=== PATIENT | female | born 1960 | race Caucasian/White ===

== ENCOUNTER 2019-08-24 21:35 | Inpatient (IN) | payer BC ==
[2019-08-24] MEDS: Diltiazem IV BAG* D5W Premix 125 MG/125 ML BAG IV ONE ×2 (21:49→22:38)
[2019-08-24] MEDS ORDERED: Metoprolol Tartrate TAB* 50 mg PO ONE (21:50)
--- NOTE | 2019-08-24 21:53 | ED ---
HPI Cardiac - HPI Summary HPI Summary: Patient is a 59 y/o F presenting to [facility] via EMS for chief complaint of rapid afib. The patient has been experiencing intermittent episodes of chest discomfort along with fatigue, SOB, and palpitations. In June 2019, she started seeing Dr. Anguiano, cardiology. Patient states that she is scheduled to have a cardiac stress test in two days time. In anticipation of this, she was advised to stop taking her Metoprolol, 50 mg, yesterday evening. Tonight, she developed another episode of Sx. She went to [facility] and was found to be in rapid afib. Patient received a Cardizem drip of 15mg/hr and was transferred to [facility] for further workup. The patient states that she is still currently experiencing a chest fluttering sensation but denies SOB and CP. She notes that she will experience intermittent radiation of this sensation into her neck and arms. Patient is on Lisinopril 40 mg, Sertaline 50 mg, Omperazole 20 mg, Ibuprofen 800 mg BID, Gabapentin 300 mg, Levothyroxine, Metoprolol 50 mg. Home medications and allergies are reviewed. Home Medications Medication Instructions Recorded Confirmed Type Gabapentin CAP(*) [Neurontin 300 300 mg PO BID 08/24/19 08/24/19 History CAP(*)] Ibuprofen TAB* [Motrin TAB* 800 MG] 800 mg PO TID PRN 08/24/19 08/24/19 History Ketoconazole 2 % CREAM (NF) 1 applic TOPICAL BID PRN 08/24/19 08/24/19 History [Nizoral 2% CREAM (NF)] Levothyroxine TAB* [Synthroid TAB*] 100 mcg PO SUSA 08/24/19 08/24/19 History Levothyroxine TAB* [Synthroid TAB*] 112 mcg PO MOTUWETHFR 08/24/19 08/24/19 History Metoprolol Succinate XL TAB* 50 mg PO DAILY 08/24/19 08/24/19 History [Toprol XL TAB*] Omeprazole CAP (NF) [Prilosec CAP* 20 mg PO DAILY 08/24/19 08/24/19 History 20 MG] Sertraline* [Zoloft*] 50 mg PO DAILY 08/24/19 08/24/19 History lisinopriL [Lisinopril] 40 mg PO DAILY 08/24/19 08/24/19 History - History of Current Complaint Chief Complaint: EDDysrhythmPalp Stated Complaint: AFIB PER EMS Time Seen by Provider: 08/24/19 21:39 Hx Obtained From: Patient Onset/Duration: Started Hours Ago, Still Present Timing: Lasting Hours Current Severity: None Pain Intensity: 0 Pain Scale Used: 0-10 Numeric Character: Fluttering Associated Signs and Symptoms: Positive: Palpitations - fluttering. Negative: Chest Pain - none at present, Shortness of Breath - none at present - Allergy/Home Medications Allergies/Adverse Reactions: Allergies Allergy/AdvReac Type Severity Reaction Status Date / Time cephalexin [From Keflex] Allergy Hallucinati Verified 08/24/19 21:44 ons Penicillins Allergy Hallucinati Verified 08/24/19 21:44 ons ciprofloxacin [From Cipro] AdvReac Nausea And Verified 08/24/19 21:44 Vomiting Home Medications: Home Medications Gabapentin CAP(*) [Neurontin 300 CAP(*)] 300 mg PO BID 08/24/19 [History Confirmed 08/24/19] Ibuprofen TAB* [Motrin TAB* 800 MG] 800 mg PO TID PRN 08/24/19 [History Confirmed 08/24/19] Ketoconazole 2 % CREAM (NF) [Nizoral 2% CREAM (NF)] 1 applic TOPICAL BID PRN [History Confirmed 08/24/19] Levothyroxine TAB* [Synthroid TAB*] 100 mcg PO SUSA 08/24/19 [History Confirmed 08/24/19] Levothyroxine TAB* [Synthroid TAB*] 112 mcg PO MOTUWETHFR 08/24/19 [History Confirmed 08/24/19] Metoprolol Succinate XL TAB* [Toprol XL TAB*] 50 mg PO DAILY 08/24/19 [History Confirmed 08/24/19] Omeprazole CAP (NF) [Prilosec CAP* 20 MG] 20 mg PO DAILY 08/24/19 [History Confirmed 08/24/19] Sertraline* [Zoloft*] 50 mg PO DAILY 08/24/19 [History Confirmed 08/24/19] lisinopriL [Lisinopril] 40 mg PO DAILY 08/24/19 [History Confirmed 08/24/19] PMH/Surg Hx/FS Hx/Imm Hx Endocrine/Hematology History: Reports: Hx Thyroid Disease Cardiovascular History: Reports: Hx Hypertension GI History: Reports: Hx Gastroesophageal Reflux Disease Infectious Disease History: No Infectious Disease History: Denies: Traveled Outside the [place] in Last 30 Days - Family History Known Family History: Positive: Diabetes - Social History Alcohol Use: None Substance Use Type: Reports: None Smoking Status (MU): Never Smoked Tobacco Review of Systems Positive: Palpitations. Negative: Chest Pain Negative: Shortness Of Breath All Other Systems Reviewed And Are Negative: Yes Physical Exam - Summary Physical Exam Summary: Appearance: Well-appearing, Well-nourished, lying in bed comfortably Skin: Warm, dry, no obvious rash Eyes: sclera anicteric, no conjunctival pallor HENT: mucous membranes moist, pharynx appears normal Neck: Supple, nontender Respiratory: Clear to auscultation, no signs of respiratory distress Cardiovascular: Irregularly irregular. Normal S1, S2. No murmurs. Normal distal pulses in tibial and radial bilaterally. Abdomen: Soft, nontender, normal active bowel sounds present Musculoskeletal: Normal, Strength/ROM Intact Neurological: A&Ox3, awake and alert, mentation is normal, speech is fluent and appropriate Psychiatric: affect is normal, does not appear anxious or depressed Triage Information Reviewed: Yes Vital Signs On Initial Exam: Initial Vitals Temp Pulse Resp BP Pulse Ox 97.9 F 132 18 168/121 97 08/24/19 21:42 08/24/19 21:42 08/24/19 21:42 08/24/19 21:42 08/24/19 21:42 Vital Signs Reviewed: Yes Procedures - Sedation Patient Received Moderate/Deep Sedation with Procedure: No Diagnostics - Vital Signs Vital Signs Temp Pulse Resp BP Pulse Ox 08/24/19 21:42 97.9 F 132 18 168/121 97 - Laboratory Lab Statement: Any lab studies that have been ordered have been reviewed, and results considered in the medical decision making process. Disposition - Course Course Of Treatment: Patient is a 59 y/o F presenting to [facility] via EMS for chief complaint of rapid afib. The patient has been experiencing intermittent episodes of chest discomfort along with fatigue, SOB, and palpitations. In June 2019, she started seeing Dr. Anguiano, cardiology. Patient states that she is scheduled to have a cardiac stress test in two days time. In anticipation of this, she was advised to stop taking her Metoprolol, 50 mg, yesterday evening. Tonight, she developed another episode of Sx. She went to [facility] and was found to be in rapid afib. Patient received a Cardizem drip of 15mg/hr and was transferred to [facility] for further workup. The patient states that she is still currently experiencing a chest fluttering sensation but denies SOB and CP. She notes that she will experience intermittent radiation of this sensation into her neck and arms. On physical exam, patient is noted to have an irregularly irregular heart rhythm. During ED course, patient received Lopressor 100 mg PO and Cardizem, 125 mg in 125 mls @ 10 mls/hr IV. Patient's case was discussed with Dr. Palmer, Dr. Palmer accepts for admission. - Diagnoses Provider Diagnoses: Atrial fibrillation with RVR - Physician Notifications Discussed Care Of Patient With: Dinorah Palmer Time Discussed With Above Provider: 22:36 Instructed by Provider To: Other - Patient's case was discussed with Dr. Palmer, Dr. Palmer accepts for admission. Discharge ED - Sign-Out/Discharge Documenting (check all that apply): Patient Departure - admit - Discharge Plan Condition: Stable Disposition: ADMITTED TO [facility] - Billing Disposition and Condition Condition: STABLE Disposition: Admitted to [facility] - Attestation Statements Document Initiated by Valerie: Yes Documenting Scribe: CURTIS KITCHEN Provider For Whom Valerie is Documenting (Include Credential): MD Jadiel JASSOibrola Attestation: CURTIS Salvador, scribed for CHALINO CASPER MD on 08/25/19 at 0607. Scribe Documentation Reviewed: Yes Provider Attestation: The documentation as recorded by the CURTIS cooper accurately reflects the service I personally performed and the decisions made by me, CHALINO CASPER MD Status of Scribe Document: Viewed
--- OUTSIDE RECORDS SUMMARY | 2019-08-24 22:14 | XMS REPORT | Continuity of Care Document ---
:1960 External Reference #:[id number] Author Name Vasquez Anguiano M.D. 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 Onset: 03/20/2018 Carpal tunnel syndrome of left wrist Timothy Waters M.D. Onset: 03/20/2018 Lesion of ulnar nerve Timothy Waters M.D. Onset: 03/20/2018 Sprain of medial collateral ligament of Timothy Waters M.D. Onset: 2018 knee Current tear of medial cartilage AND/OR Timothy Waters M.D. Onset: 2018 meniscus of knee Sprain of anterior cruciate ligament of Timothy Waters M.D. Onset: 2018 left knee, subsequent encounter Peripheral tear of medial meniscus, Timothy Waters M.D. Onset: 11/26/2018 current injury, left knee, subsequent encounter Social History Type Date Description Comments Sex Unknown Tobacco Use Start: Unknown Never Smoked Cigarettes Smoking Status Reviewed: 07/22/19 Never Smoked Cigarettes ETOH Use consumes 1-2 glasses of wine per day Recreational Drug Use Denies Drug Use Tobacco Use Start: Unknown Patient has never smoked Exercise Type/Frequency Does not exercise Allergies, Adverse Reactions, Alerts Active Allergies Reaction Severity Comments Date Penicillin 01/25/2013 Keflex 01/25/2013 Antihistamine 01/25/2013 Sudafed 01/25/2013 Ciprofloxacin 11/20/2018 Medications Active Medications SIG Qnty Indications Ordering Date Provider Clobetasol Propionate apply twice daily 30gm Maranda Milan, 04/14/2019 0.05% N.P. Ointment Ibuprofen three times 60tabs Unknown 800mg Tablets daily. prn Lisinopril 1 po qd 30tabs Unknown 20mg Tablets TENS Unit prn Unknown Zyrtec Allergy 1 po qd 30tabs Unknown 10mg Tablets Zoloft 1 daily Unknown 50mg Tablets Omeprazole 1 in a.m. Unknown 20mg Tablets DR Hopkins HFA 2 puffs by mouth Unknown 108(90Base) every 4 hours as mcg/Act Aerosol needed Levothyroxine Sodium 1 by mouth every Unknown 112mcg day, Pt Tablets alternates with 100mcg tablets on the weekend Gabapentin 1 bid Unknown 300mg Capsules Cyclobenzaprine HCL 1 tablet by mouth Unknown 10mg q8 hours as Tablets needed muscle spasms Metoprolol Succinate ER 1 by mouth every Unknown day 50mg Tablets ER 24HR Vagifem insert 1 tablet Unknown 10mcg Tablets vaginally twice a week Aspirin Adult take one tab Unknown 325mg Tablets twice a day for 2 weeks Vitamin B12 1 by mouth every Unknown 1000mcg Tablets day ER Immunizations Description No Information Available Vital Signs Date Vital Result Comment 07/22/2019 10:12am Height 63.5 inches 5'3.50" Weight 251.25 lb Heart Rate 67 /min BP Systolic Sitting 140 mmHg Left arm - Large Cuff BP Diastolic Sitting 86 mmHg Left arm - Large Cuff Respiratory Rate 18 /min Body Temperature 97.8 F O2 % BldC Oximetry 98 % BMI (Body Mass Index) 43.8 kg/m2 07/20/2019 4:14pm Height 63.5 inches 5'3.50" Weight 249.00 lb Heart Rate 81 /min BP Systolic Sitting 138 mmHg BP Diastolic Sitting 90 mmHg Body Temperature 97.3 F BMI (Body Mass Index) 43.4 kg/m2 Results Description No Information Available Procedures Date Code Description Status 07/22/2019 53168 EKG Tracing & Interpretation Completed 07/21/2019 75603 Tangential Biopsy Of Skin, Single Lesion Completed 04/30/2019 48146 Arthroscopy,Knee,Meniscectomy Medial Or Lateral Completed Medical Devices Description No Information Available Encounters Type Date Location Provider Dx Diagnosis Office Visit 05/19/2019 [facility] Maranda Milan N.P. 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 07/22/2019 R00.0 Tachycardia Vasquez Anguiano M.D. 07/22/2019 R00.2 Palpitations Vasquez Anguiano M.D. 07/21/2019 D23.9 Other benign neoplasm of skin, unspecified Tierney Shirley MD 07/21/2019 B37.2 Candidiasis of skin and nail Tierney Shirley MD 07/21/2019 L81.4 Other melanin hyperpigmentation Tierney Shirley MD 07/21/2019 L85.8 Other specified epidermal thickening Tierney Shirley MD 07/21/2019 L73.8 Other specified follicular disorders Tierney Shirley MD 07/21/2019 D48.5 Neoplasm of uncertain behavior of skin Tierney Shirley MD 07/20/2019 S83.222D Peripheral tear of medial meniscus, Timothy Waters M.D. current injury, left kne 07/20/2019 M70.52 Other bursitis of knee, left knee Timothy Waters M.D. 06/29/2019 S83.222D Peripheral tear of medial meniscus, Timothy Waters M.D. current injury, left kne 06/15/2019 S83.222D Peripheral tear of medial meniscus, Timothy Waters M.D. current injury, left kne 06/15/2019 M70.52 Other bursitis of knee, left knee Timothy Waters M.D. 06/01/2019 S83.222D Peripheral tear of medial meniscus, Timothy Waters M.D. current injury, left kne 05/19/2019 L90.0 Lichen sclerosus et atrophicus Maranda Milan, N.P. 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 05/11/2019 S83.222D Peripheral tear of medial meniscus, Timothy Waters M.D. current injury, left kne 04/30/2019 S83.222D Peripheral tear of medial meniscus, Timothy Waters M.D. current injury, left kne 04/14/2019 L90.0 Lichen sclerosus et atrophicus Maranda Milan, N.P. 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 04/08/2019 S83.222D Peripheral tear of medial meniscus, Timothy Waters M.D. current injury, left kne Plan of Treatment Future Appointment(s):09/09/2019 11:45 am - Vasquez Anguiano M.D. at [facility]08/26/2019 8:30 am - Traveling ECHO 1 at [facility]2019 9:00 am - Vasquez Anguiano M.D. at [facility]08/02/2019 8:15 am - Traveling ECHO 1 at [facility]07/22/2019 - Vasquez Anguiano M.D.R07.89 Chest painNew Orders:Stress Test, Exercise Echocardiogram, Ordered: 07/22/19Echocardiogram, Ordered: 07/22/19Follow up:1 [id number] VybewzhvxzbO42.2 Palpitations Functional Status Description No Information Available Mental Status Description No Information Available Referrals Refer to Dr Reason for Referral Status Appt Date Tierney Shirley MD Lichen sclerosus, black papule on right Scheduled [address], [place] [address] [phone]
--- OUTSIDE RECORDS SUMMARY | 2019-08-24 22:14 | XMS REPORT | Continuity of Care Document ---
:1960 External Reference #:[id number] Author Name Timothy Waters M.D. 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 Ointment Ibuprofen three times 60tabs Unknown 800mg Tablets daily. prn Lisinopril 1 po qd 30tabs Unknown 20mg Tablets TENS Unit prn Unknown Zyrtec Allergy 1 po qd 30tabs Unknown 10mg Tablets Zoloft 1 daily Unknown 50mg Tablets Omeprazole 1 in a.m. Unknown 20mg Tablets DR Hopkins HFIvonne 2 puffs by mouth Unknown 108(90Base) every 4 hours as mcg/Act Aerosol needed Levothyroxine Sodium 1 by mouth every Unknown 112mcg day Tablets Gabapentin 1 bid Unknown 300mg Capsules Cyclobenzaprine [...] Available Vital Signs Date Vital Result Comment 07/20/2019 4:14pm Height 63.5 inches 5'3.50" Weight 249.00 lb Heart Rate 81 /min BP Systolic Sitting 138 mmHg BP Diastolic Sitting 90 mmHg Body Temperature 97.3 F BMI (Body Mass Index) 43.4 kg/m2 06/29/2019 3:33pm Height 63.5 inches 5'3.50" Weight 248.00 lb Heart Rate 68 /min BP Systolic Sitting 146 mmHg BP Diastolic Sitting 100 mmHg Body Temperature 97.0 F BMI (Body Mass Index) 43.2 kg/m2 Results Description No Information Available Procedures Date Code Description Status 04/30/2019 94945 Arthroscopy,Knee,Meniscectomy Medial Or Lateral Completed Medical Devices Description No Information Available Encounters Type Date Location Provider Dx Diagnosis Office Visit 05/19/2019 [facility] Maranda Milan N.P. 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 injury, left kne 07/20/2019 M70.52 Other bursitis of knee, left knee Timothy Waters M.D. 06/29/2019 S83.222D Peripheral tear of medial meniscus, current Timothy Waters M.D. injury, left kne 06/15/2019 S83.222D Peripheral tear of medial meniscus, current Timothy Waters M.D. injury, left kne 06/15/2019 M70.52 Other bursitis of knee, left knee Timothy Waters M.D. 06/01/2019 S83.222D Peripheral tear of medial meniscus, current Timothy Waters M.D. injury, left kne 05/19/2019 L90.0 Lichen sclerosus et atrophicus Maranda Milan N.P. 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 05/11/2019 S83.222D Peripheral tear of medial meniscus, current Timothy Waters M.D. injury, left kne 04/30/2019 S83.222D Peripheral tear of medial meniscus, current Timothy Waters M.D. injury, left kne 04/14/2019 L90.0 Lichen sclerosus et atrophicus Maranda Milan N.P. 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 04/08/2019 S83.222D Peripheral tear of medial meniscus, current Timothy Evelin, M.D. injury, left kne Plan of Treatment Future Appointment(s):07/22/2019 10:00 am - Vasquez Anguiano M.D. at [facility]07/21/2019 3:30 pm - Tierney Shirley MD at [facility] Adubexxyxkn38/11/2020 - Timothy Waters M.D.S83.222D Peripheral tear of medial meniscus, current injury, left kneM70.52 Other bursitis of knee, left kneeFollow up:Call if needed Functional Status Description No Information Available Mental Status Description No Information Available Referrals Refer to Dr Reason for Referral Status Appt Date Tierney Shirley MD Lichen sclerosus, black papule on right Scheduled [address], [place] [address] [phone]
--- OUTSIDE RECORDS SUMMARY | 2019-08-24 22:14 | XMS REPORT | Continuity of Care Document ---
:1960 External Reference #:[id number] Author Name Timothy Waters M.D. 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 [phone] Medicine Problems Active Problems Provider Date Lumbosacral [...] Unknown Never Smoked Cigarettes Smoking Status Reviewed: 06/29/19 Never Smoked Cigarettes ETOH Use consumes 1-2 [...] Available Vital Signs Date Vital Result Comment 06/29/2019 3:33pm Height 63.5 inches 5'3.50" Weight 248.00 lb Heart Rate 68 /min BP Systolic Sitting 146 mmHg BP Diastolic Sitting 100 mmHg Body Temperature 97.0 F BMI (Body Mass Index) 43.2 kg/m2 06/15/2019 10:38am Height 63.5 inches 5'3.50" Weight 247.00 lb Heart Rate 65 /min BP Systolic Sitting 160 mmHg BP Diastolic Sitting 92 mmHg Body Temperature 96.9 F BMI (Body Mass Index) 43.1 kg/m2 Results Description No Information Available Procedures Date Code Description Status 04/30/2019 04239 Arthroscopy,Knee,Meniscectomy Medial Or Lateral Completed Medical Devices Description No Information Available Encounters Type Date Location Provider Dx Diagnosis Office Visit 05/19/2019 [facility] Maranda Milan N.P. 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 injury, left kne Plan of Treatment Future Appointment(s):07/20/2019 4:00 pm - Timothy Waters M.D. at [place] [facility] at [facility]23/13/2020 10:00 am - Vasquez Anguiano M.D. at [place] F[facility]xufllnxs19/12/2020 3:30 pm - Tierney Shirley MD at [facility] Eochjdziaqf24/21/2020 - Timothy Waters M.D.S83.222D Peripheral tear of medial meniscus, current injury, left kneFollow up:3 weeks Functional Status Description No Information Available Mental Status Description No Information Available Referrals Refer to Dr Reason for Referral Status Appt Date Tierney Shirley MD Lichen sclerosus, black papule on right Scheduled [address], [place] [address] [phone]
--- OUTSIDE RECORDS SUMMARY | 2019-08-24 22:14 | XMS REPORT | Continuity of Care Document ---
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 [phone] Medicine Problems Active Problems Provider Date Lumbosacral [...] Information Available Procedures Date Code Description Status 08/02/2019 48684 ECHO Transthorasic Realtime 2D W Doppler & Color Flow Hosp Completed 08/02/2019 84336 ECHO Transthorasic Realtime 2D W Doppler & Color Flow Hosp Completed 07/22/2019 29738 EKG, Interpretation Only Completed 07/21/2019 48135 Tangential Biopsy Of Skin, Single Lesion Completed 04/30/2019 47999 Arthroscopy,Knee,Meniscectomy Medial Or Lateral Completed Medical Devices Description No Information Available Encounters Type Date Location Provider Dx Diagnosis Office Visit 07/22/2019 [facility] Vasquez Hui R07.89 Other chest pain 10:00a Kimberly Anguiano R00.0 Tachycardia, unspecified R00.2 Palpitations Office Visit 07/21/2019 3:30p [facility] Tierney Shirley, D23.9 Other benign MD neoplasm of skin, unspecified B37.2 Candidiasis of skin and nail L81.4 Other melanin hyperpigmentation L85.8 Other specified epidermal thickening L73.8 Other specified follicular disorders L98.9 Disorder of the skin and subcutaneous tissue, unspecified Office Visit 05[facility]19[facility]2019 2[facility]p [facility], L90.0 Lichen sclerosus [facility] 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 08/02/2019 R07.89 Other chest pain Traveling ECHO 1 07/22/2019 R07.89 Chest pain Vasquez Anguiano M.D. [...] specified follicular disorders Tierney Shirley MD 07/21/2019 L98.9 Disorder of the skin and subcutaneous Tierney Shirley MD tissue, unspecified 07/20/2019 S83.222D Peripheral tear of medial meniscus, [...] 11:45 am - Vasquez Anguiano M.D. at [facility]08/26/2019 8:30 am - Traveling ECHO 1 at [facility]2019 9:00 am - Vasquez Anguiano M.D. at [place]05/13/2020 - Vasquez Anguiano M.D.R07.89 Chest painNew Orders:Stress Test, Exercise Echocardiogram, Scheduled: 08/26/19Follow up:1 ubamwE75.0 GhtoolxeyucA16.2 Palpitations Functional Status Description No Information Available Mental Status Description No Information Available Referrals Refer to Dr Reason for Referral Status Appt Date Tierney Shirley MD Lichen sclerosus, black papule on right Scheduled [address] [place] [address], [place] [address] [phone]
[2019-08-24] MEDS ORDERED: Potassium Chlor TAB* 20 MEQ TAB.ER PO ONE (22:46)
[2019-08-24] MEDS ORDERED: Ibuprofen TAB* 800 MG PO PRN (22:46)
[2019-08-24] MEDS ORDERED: Diltiazem IV BAG* D5W Premix 125 MG/125 ML BAG IV SCH (23:00)
[2019-08-25] MEDS: Diltiazem TAB* 30 MG PO SCH ×2 (00:40→05:27)
--- NOTE | 2019-08-25 02:28 | HP ---
CC: Dr. Ramsay; Dr. Anguiano* HISTORY AND PHYSICAL: DATE OF ADMISSION: 08/24/19 PRIMARY CARE PROVIDER: Dr. Suhas Ramsay. CHIEF COMPLAINT: Chest pressure, palpitations. 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 She stated that around 4 p.m., she started experiencing palpitations and sensation of discomfort in her chest and heat radiating from bilateral shoulders to her neck region. She also noted that she had palpitations, fast heart rate that was irregular. The patient came into [facility] and she was noted to be in AFib with RVR with heart rate into 150s. She was placed on Cardizem drip. She also had another episode of, at that point, chest pain and bilateral shoulders, upper chest, and radiating to the neck, lasted approximately a minute and resolved spontaneously. She was transferred to our ER for admission for atrial fibrillation with rapid ventricular response. She is currently being admitted to our telemetry floor. The patient stated that she had a knee arthroscopic surgery in April of 2019. She was on a 2-month leave until June of 2019 where she started working again. In April, she started having episodes of palpitations and chest pain. There were couple of them, the longest one lasted approximately 3 hours, but resolved spontaneously. She saw Dr. Anguiano as well as her primary care provider. She was placed on beta-suzi that was titrated up and she is on Toprol-XL 50 mg at night. Once she was on Toprol-XL, she did not have anymore palpitations or chest pain and for the past 3 months she was doing okay. She saw Dr. Anguiano, who recommended echocardiogram, which was performed and showed EF of 55% to 60% with no marked valvular abnormalities and no diastolic dysfunction. Also, Dr. Anguiano recommended for the patient to undergo a stress test, but for that the patient was recommended to stop her beta- suzi. Her last dose of beta-suzi was a little bit over 24 hours ago. She took it on Friday night. Today, she presents after the episode of chest pain and palpitations that started at 4 p.m. while finishing work. She is going to be admitted to telemetry monitored floor with diagnosis of atrial fibrillation with a rapid ventricular response and chest pain. PAST MEDICAL HISTORY: 1. Left knee arthroscopic surgery in April 2011. 2. History of carpal tunnel syndrome. 3. Anxiety. 4. Depression. 5. Hypertension. 6. Episode of shingles. 7. Migraine. 8. Hypothyroidism. 9. Asthma, well controlled. 10. C-spine fusion in 2009 with chronic pain, treated with ibuprofen. 11. Partial hysterectomy 2002 that was an open hysterectomy, ovaries are intact. 12. Tubal ligation in . CURRENT MEDICATIONS: Include: 1. Lisinopril 40 mg daily. 2. Toprol-XL 50 mg daily. 3. Gabapentin 300 mg b.i.d. 4. Omeprazole 20 mg daily. 5. Levothyroxine 100 mcg on Sundays and Saturdays and 112 mcg on remaining days of the week. 6. Nizoral cream on a p.r.n. basis. 7. Ibuprofen 800 mg up to 3 times a day p.r.n. pain. 8. Sertraline 50 mg daily. ALLERGIES: CEPHALEXIN, PENICILLIN, CIPROFLOXACIN. FAMILY HISTORY: The patient's mother is well with history of hypertension, lives currently in her 80s. Father at the age of 72 with complication of stroke that happened when he was 65, then he developed PE, then diabetes and eventually of complication of CHF. SOCIAL HISTORY: The patient drinks 1 to 2 glasses of wine at night, but occasionally she does not drink at all. She denies any alcohol or drug use. 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. She lives with her mother. She has an adult son. Her mother would be her surrogate. Her code is full. REVIEW OF SYSTEMS: Please see history of present illness. All the remaining 12 systems were reviewed and completed with the patient and were otherwise negative. PHYSICAL EXAMINATION VITAL SIGNS: Blood pressure of 144/87, heart rate of 110 and irregular, respiratory rate 23, oxygen saturation 98% on room air, temperature 97.9. GENERAL: The patient is a pleasant 59-year-old female with a BMI of 44. The patient is in no acute distress. The patient is alert and oriented x3. HEENT: Head: Atraumatic, normocephalic. Eyes: Pupils are equal, reactive to light and accommodation. Oropharynx clear. Mucosa moist. NECK: Supple. No JVD. No bruits bilaterally. RESPIRATORY: Clear to auscultation bilaterally. CARDIOVASCULAR: Irregular rhythm. No murmur. ABDOMEN: Soft, nontender. Bowel sounds are present in all 4 quadrants. LOWER EXTREMITIES: There is no edema. Pulses are +2 bilaterally. There is no clubbing, no cyanosis. NEUROLOGIC: On neuro evaluation, speech clear. Cranial nerves II through XII grossly intact. Motor strength is 5/5 bilaterally. PSYCHIATRIC: On psychiatric evaluation, pleasant, cooperative with evaluation, oriented x3, with no evidence of depression. DIAGNOSTIC STUDIES/LAB DATA: Troponin of 0. That is the most recent obtained at [facility]. The remaining labs were obtained at [facility] and those include troponin of 0.01, white blood cell count 10.6, hemoglobin of 14.6, hematocrit 44, platelets of 252. Glucose level was 115, BUN 18, creatinine 1.2. Sodium of 140, potassium of 3.3, chloride of 102, carbon dioxide 30, calcium of 8, magnesium of 2.2, total protein of 8.4, albumin of 12.2, bilirubin of 0.2, AST of 22, ALT of 33, alkaline phosphatase of 125, troponin of 0.01 as mentioned above. TSH of 1.49. At [facility], the patient received a dose of enoxaparin at 100 mg, a couple of bolus of diltiazem 20 mg IV and started on a drip of diltiazem at 10 mg an hour. Currently, the patient is on diltiazem at 10 mg an hour. She received a dose of metoprolol at 100 mg. The patient's EKG showed atrial fibrillation with heart rate of 94 beats per minute with 1 PVC, no significant ST changes. ASSESSMENT AND PLAN: 1. Atrial fibrillation with rapid ventricular response. At this point, the patient's chest pain is either related to symptomatic atrial fibrillation or angina. So far, she does not have any marked EKG changes and her troponins had ruled out acute coronary syndrome so far. The patient is going to be placed on overnight observation. I will place her on n.p.o. in case she needed to be cardioverted in the morning. I will place her on metoprolol tartrate at 50 mg every 12 hours, Cardizem IR p.o. at 30 mg every 6 hours. I will also continue her on the drip with hopes that maybe we will be able to wean her off the drip. I will ask Dr. Anguiano to see the patient in consultation. She already had an outpatient echocardiogram, which was basically unremarkable. At this point, due to rapid atrial fibrillation, I will not place her to be evaluated with cardiac stress test, but this is something to be considered in the near future. 2. The patient is mildly hypokalemic and that is going to be replaced with p.o. potassium. 3. For her hypothyroidism, the patient's TSH is well controlled and her Synthroid is going to be continued. 4. In regards to anticoagulation, we discussed it. At this point, I will continue the patient's Lovenox that was started at [facility]. Later on , she should be considered for anticoagulation with either Eliquis or Xarelto, but it also depends upon Cardiology's recommendation. 5. For DVT prophylaxis, the patient is going to be placed on Lovenox as mentioned above. 6. The patient's code status is full. Her surrogate is her mother. TIME SPENT: Approximately 65 minutes was spent on admission of this patient, more than half that time was spent [id number] with the patient during the interview and physical exam. [id number]/[facility] #: [id number] TIAN
[2019-08-25] MEDS: Levothyroxine TAB* 112 MCG TAB PO SCH (05:40)
[2019-08-25] MEDS ORDERED: Enoxaparin(*) 80 MG/0.8 ML SYR SUBCUT SCH (06:00)
[2019-08-25] MEDS ORDERED: Enoxaparin(*) 30 MG/0.3 ML SYR SUBCUT SCH (06:00)
[2019-08-25 06:23] LABS: BUN/Creatinine Ratio 15.6 (8-20); Calcium 9.5 mg/dL (8.6-10.3); EGFR African American 72.5 (>60); EGFR Non-African American 59.9 (>60); Potassium 4.3 mmol/L (3.5-5.0)
[2019-08-25] MEDS: Aspirin 81 mg CHEW TAB* 81 MG TAB.CHEW PO SCH (08:03)
[2019-08-25] MEDS: Gabapentin CAP(*) 300 MG PO SCH ×3 (08:04→20:10)
[2019-08-25] MEDS: Pantoprazole TAB * 40 MG TAB PO SCH (08:05)
[2019-08-25] MEDS: Sertraline* 50 MG TAB PO SCH (08:05)
[2019-08-25] MEDS ORDERED: Metoprolol Tartrate TAB* 50 mg PO SCH (09:00)
[2019-08-25] MEDS ORDERED: Regadenoson* 0.4 MG/5 ML SYRINGE ONE (09:27)
--- NOTE | 2019-08-25 13:07 | CONS ---
CONSULTATION REPORT: DATE OF CONSULT: 08/25/19 ATTENDING PHYSICIAN: Dr. Ronda George.* (DICTATED BY NIDIA BROWN NP) REASON FOR CONSULTATION: Newly found paroxysmal A-flutter with RVR. HISTORY OF PRESENT ILLNESS: This is a pleasant 59-year-old female patient who follows with Dr. Vasquez Anguiano of our practice due to complaints of sensation of heart racing with associated discomfort. The patient was last seen on 07/22/19 in consultation. At that time, the patient was in normal sinus rhythm. She was asked to have an updated echocardiogram and exercise nuclear stress test due to symptomatology. Previous to this, she states that for the past year she has been noticing intermittent palpitations and sensation of heart racing; however, symptom frequency accelerated in May 2019. At that time, her primary care provider increased her metoprolol from 25 mg to 50 mg and symptoms seemed to improve. However, she did have an episode yesterday in the setting of holding her metoprolol in preparation for her exercise nuclear stress test. She was found to be in AFib with rapid ventricular rate response. She presented to [facility] from where she was ultimately transferred to our facility. She received IV metoprolol and IV Cardizem and converted to normal sinus rhythm, and we were asked to see the patient in consultation. Upon further review, the patient does state that she has been noticing exertional upper chest heaviness radiating to her upper extremities and jaw with associated shortness of breath. She states that this started to occur in May when she would do more than typical activity such as snow blowing. She states she has not had a recurrent episode since May with snow blowing , although she does admit that she lives a fairly sedentary lifestyle. She denies dizziness, syncope, recent infection, hospitalization. Denies edema, weight gain, or orthopnea. Last echocardiogram was on 08/02/19. At that time, LVEF was 55% to 60%, normal left atrial size, proximal ascending aorta was 3.4 cm with mild asymmetric hypertrophy of left ventricle. PAST MEDICAL HISTORY: 1. Lichen sclerosus. 2. C5 through C6 disk herniation. 3. Hypothyroidism. 4. Hypertension. 5. Neuropathy. 6. Anxiety and depression. 7. Asthma. 8. A 3.4 cm proximal ascending aorta. PAST SURGICAL HISTORY: 1. Anterior cervical disk fusion. 2. Carpal tunnel release. 3. Tubal ligation. 4. Partial hysterectomy. 5. Left knee surgery. HOME MEDICATIONS: Per admission med rec; 1. Lisinopril 40 mg a day. 2. Metoprolol 50 mg a day. 3. Gabapentin 300 mg p.o. b.i.d. 4. Prilosec 20 mg a day. 5. Levothyroxine. 6. Motrin 800 mg p.o. t.i.d. p.r.n. 7. Zoloft 50 mg a day. ALLERGIES: Listed include penicillin, cephalosporin, and ciprofloxacin, all of which are not true allergies, but rather sensitivities per patient. FAMILY HISTORY: Mother is well and resides with the patient. She has a history of hypertension. Father at the age of 72 due to complications from CVA and PE and also documented history of heart failure, otherwise noncontributory. SOCIAL HISTORY: The patient lives at home with her mother. She is . She consumes 1 to 2 glasses of wine approximately 4 times a week. Denies ever utilizing tobacco products. Denies drug use. She is employed as an [employer] with [employer]. In regards to activities, she lives a fairly sedentary lifestyle. The most exertional thing that she does, according to the patient, is walking up 1 flight of stairs at her home. REVIEW OF SYSTEMS: All systems have been reviewed and otherwise negative except as above mentioned in the HPI. PHYSICAL EXAM: Vital Signs: Temperature 97.6, pulse 57, respirations 14, oxygenation 96% on room air, blood pressure 131/80. General: The patient is lying in bed upon entering the room, appears in no apparent distress, is obese but pleasant and A and O x3. HEENT: Head is atraumatic, normocephalic. Oral mucosa is moist. Tongue is midline. Neck: Supple. Trachea midline. Unable to assess for JVD. No carotid bruits. Cardiac: Normal S1, S2. Regular rate and rhythm. No murmur, gallop, or rub noted. Lungs: Auscultated posteriorly. No evidence of adventitious breath sounds. Respirations are nonlabored. /GI : Abdomen is obese, soft, nontender, nondistended. Normoactive bowel sounds x4. Unable to assess for hepatomegaly. Peripheral Vascular: 3+ brachial pulse and dorsalis pedis pulse palpated bilaterally and symmetrically. Skin: Intact. No evidence of jaundice, rashes, or ecchymosis appreciated. DIAGNOSTIC STUDIES/LAB DATA: Blood work obtained 08/25/19: Sodium 140, potassium 4.3, chloride 108, carbon dioxide 25, BUN 15, creatinine 0.96, glucose 105. Hemoglobin A1c in April 2019 was 5.6%. Troponin negative x2, LDL was 72 in April 2019. ECG, 08/24/19; reviewed. AFib, rate 94. No ST segment changes appreciated. ECG, 08/25/19; normal sinus rhythm, rate 61, and no ST segment changes appreciated. Exercise nuclear stress test pending. ASSESSMENT AND PLAN: 1. Newly diagnosed paroxysmal with rapid ventricular rate response. The patient is symptomatic with intermittent complaints of sensation of heart racing , irregularity with associated upper neck discomfort; currently in normal sinus rhythm, on metoprolol 50 mg a day. CHADS-VASc is 2, representing a 2.2% risk of annual stroke. Would recommend oral anticoagulation. I discussed at length options in regards to direct oral anticoagulant. She is agreeable to proceeding with Eliquis 5 mg p.o. b.i.d. Would recommend continuing metoprolol therapy, awaiting exercise nuclear stress test. Consideration for rhythm control should be pursued given the patient is symptomatic and has had increased frequency of episodes since May 2019. If nuclear imaging is low risk for ischemia, it is considerable to do a trial of flecainide therapy. She reports a history of snoring and given her morbid obesity, she will need an eventual sleep study. I also reviewed extensively the importance of achieving healthy BMI for prevention of recurrent atrial fibrillation. She denies any history of bleeding events. Of note, she does take Motrin 800 mg frequently. I reviewed with her the risk of bleeding complications, now that she will be on anticoagulant. She states that she is agreeable to stop taking Motrin and other NSAIDs. Her TSH was 0.31 in June 2019; however, she adds that her primary doctor recently adjusted her levothyroxine therapy. We will make further recommendations postexercise nuclear stress test. 2. History of hypertension, on lisinopril and metoprolol therapy, currently normotensive. 3. Complaints of exertional chest discomfort radiating into neck, to have exercise nuclear stress test for risk stratification. LDL was 72 in April 2019. We will follow and make further recommendations. 4. BMI 44; reviewed extensively the importance of achieving healthy BMI. The patient is agreeable to lifestyle modification. I will speak to primary rv service technician about the utilization of Eliquis in the setting of BMI of 44 given there is clinical data suggesting that avoidance of anticoagulants should be considered in this population. 5. Disposition: Pending course. Dr. Ronda George agrees with the above assessment and plan. The patient has been seen and examined by Dr. Ronda George. NIDIA BROWN, KAHLIL [id number]/[facility] #: [id number] TIAN
--- NOTE | 2019-08-25 15:31 | PN ---
Cardiology Progress Note Date of Service: 08/25/19 - CC: palpitations, TREVIZO, chest pressure See full consult note from SOCIAL MEDIA MARKETING SPECIALIST Isha Leslie. Presented with Afib, RVR, newly documented but several weeks to months of symptoms. Pt had early and marked SOB with TM stress, she says she used to be able to walk better. Chemical stress in recovery. Patient is comfortable at rest. Denies any increased SOB since beta suzi started. CURRENT MEDS: Acetaminophen (Tylenol Tab*) 650 mg PO Q4H PRN PRN Reason: PAIN-MILD/TEMP >/= 100.4 Aspirin (Aspirin 81 Mg Chew Tab*) 81 mg PO DAILY [facility] Last Admin: 08/25/19 08:03 Dose: 81 mg Enoxaparin Sodium (Lovenox(*)) 80 mg SUBCUT Q12H [facility] Last Admin: 08/25/19 05:40 Dose: 80 mg Enoxaparin Sodium (Lovenox(*)) 30 mg SUBCUT Q12H [facility] Last Admin: 08/25/19 05:41 Dose: 30 mg Gabapentin (Neurontin Cap(*)) 300 mg PO BID [facility] Last Admin: 08/25/19 08:06 Dose: Not Given Levothyroxine Sodium (Synthroid Tab*) 112 mcg PO MoTuWeThFr@0600 [facility] Last Admin: 08/25/19 05:40 Dose: 112 mcg Levothyroxine Sodium (Synthroid Tab*) 100 mcg PO SuSa@0600 [facility] Metoprolol Tartrate (Lopressor Tab*) 50 mg PO Q12HR [facility] Last Admin: 08/25/19 08:03 Dose: 50 mg Pantoprazole Sodium (Protonix Tab*) 40 mg PO DAILY [facility] Last Admin: 08/25/19 08:05 Dose: 40 mg Sertraline HCl (Zoloft*) 50 mg PO DAILY [facility] Last Admin: 08/25/19 08:05 Dose: 50 mg HOME MEDS: Gabapentin CAP(*) [Neurontin 300 CAP(*)] 300 mg PO BID 08/24/19 [History Confirmed 08/24/19] Ibuprofen TAB* [Motrin TAB* 800 MG] 800 mg PO TID PRN 08/24/19 [History Confirmed 08/24/19] Ketoconazole 2 % CREAM (NF) [Nizoral 2% CREAM (NF)] 1 applic TOPICAL BID PRN [History Confirmed 08/24/19] Levothyroxine TAB* [Synthroid TAB*] 100 mcg PO SUSA 08/24/19 [History Confirmed 08/24/19] Levothyroxine TAB* [Synthroid TAB*] 112 mcg PO MOTUWETHFR 08/24/19 [History Confirmed 08/24/19] Metoprolol Succinate XL TAB* [Toprol XL TAB*] 50 mg PO DAILY 08/24/19 [History Confirmed 08/24/19] Omeprazole CAP (NF) [Prilosec CAP* 20 MG] 20 mg PO DAILY 08/24/19 [History Confirmed 08/24/19] Sertraline* [Zoloft*] 50 mg PO DAILY 08/24/19 [History Confirmed 08/24/19] lisinopriL [Lisinopril] 40 mg PO DAILY 08/24/19 [History Confirmed 08/24/19] Vital Signs - 12 hr Temp Pulse Resp BP Pulse Ox 08/25/19 12:00 58 16 132/74 95 08/25/19 08:00 71 08/25/19 07:28 97.6 F 57 14 131/80 96 Patient is short, overweight, NAD Distant BS, clear S1S2 regular, no murmurs. No abd distension LE free of edema Stress test shows lateral wall defect that is likely breast artifact. No sig. ST changes walking. A/p PAF, RVR when beta suzi held, marked TREVIZO on metoprolol today, no wheezing. PAF: Sotolol, start low 40 BID Taper metoprolol Anticoagulation: CHADs score: 1 for HTN. Ideally NOAC, but BMI of 44 puts her in a range of uncertain/untested data Will Start Eliquis, check if a response Xa level Discussed this plan with the patient.
[2019-08-25] MEDS: Sotalol TAB* 80 MG PO SCH ×2 (17:36→20:10)
--- NOTE | 2019-08-25 17:40 | PN ---
Subjective Date of Service: 08/25/19 Interval History: Pt reports that she is feeling well today. Feels that she has had a couple PVC' s but nothing like on arrival. pt states also that she felt SOB while performing stress test, and she does not normally feel that way. Pt does deny chest pain, SOB, Dizziness Family History: Unchanged from Admission Social History: Unchanged from Admission Past Medical History: Unchanged from Admission Objective Active Medications: Acetaminophen (Tylenol Tab*) 650 mg PO Q4H PRN PRN Reason: PAIN-MILD/TEMP >/= 100.4 Apixaban (Eliquis*) 5 mg PO BID [facility] Aspirin (Aspirin 81 Mg Chew Tab*) 81 mg PO DAILY [facility] Last Admin: 08/25/19 08:03 Dose: 81 mg Gabapentin (Neurontin Cap(*)) 300 mg PO BID [facility] Last Admin: 08/25/19 08:06 Dose: Not Given Levothyroxine Sodium (Synthroid Tab*) 112 mcg PO MoTuWeThFr@0600 [facility] Last Admin: 08/25/19 05:40 Dose: 112 mcg Levothyroxine Sodium (Synthroid Tab*) 100 mcg PO SuSa@0600 [facility] Metoprolol Tartrate (Lopressor Tab*) 25 mg PO Q12HR [facility] Pantoprazole Sodium (Protonix Tab*) 40 mg PO DAILY [facility] Last Admin: 08/25/19 08:05 Dose: 40 mg Sertraline HCl (Zoloft*) 50 mg PO DAILY [facility] Last Admin: 08/25/19 08:05 Dose: 50 mg Sotalol HCl (Betapace Tab*) 40 mg PO BID [facility] Vital Signs - 8 hr 08/25/19 08/25/19 12:00 15:15 Temperature 97.3 F Pulse Rate 58 68 Respiratory 16 20 Rate Blood Pressure 132/74 146/85 (mmHg) O2 Sat by Pulse 95 96 Oximetry Oxygen Devices in Use Now: None Appearance: Obese Middle aged woman sitting up in bed reading does not appear to be in any distress. Eyes: No Scleral Icterus Ears/Nose/Mouth/Throat: NL Teeth, Lips, Gums, Clear Oropharnyx, Mucous Membranes Moist Neck: NL Appearance and Movements; NL JVP, Trachea Midline, No Thyroid Enlargement, Masses Respiratory: Symmetrical Chest Expansion and Respiratory Effort, Clear to Auscultation Cardiovascular: NL Sounds; No Murmurs; No JVD, RRR, No Edema Abdominal: NL Sounds; No Tenderness; No Distention, No Hepatosplenomegaly Extremities: No Edema, No Clubbing, Cyanosis Skin: No Rash or Ulcers, No Nodules or Sclerosis Neurological: Alert and Oriented x 3, NL Muscle Strength and Tone Nutrition: Taking PO's Result Diagrams: 08/25/19 05:58 Assess/Plan/Problems-Billing Assessment: 59 year old female patient with history significant for HTN, Hypothyrodism, Asthma presents to ED via ambulance from [facility] with complaints of atrial fibrillation. Pt presented with chest pressure Afib with RVR had recently stopped her beta suzi, 24 hours earlier in preparation for stress testing . - Patient Problems (1) Afib Current Visit: Yes Comment: -Pt denies feeling any chest pressure today, does believe she has experienced a few PVC's -Dr. George has decided to taper Metoprolol and start Sotalol, also she has started eliquis -Tele remains -Stress test shows EF 70% without any abnormal wall movement- Low risk (2) HTN (hypertension) Current Visit: Yes Comment: -Blood pressures have been well controlled with beta blockers -Home Lisinopril held for now. (3) Hypothyroid Current Visit: Yes Comment: -Hypothyroid well controlled - TSH 1.49 (4) Hypokalemia Current Visit: Yes Comment: -Potassium replacement effective K+ now 4.3 (5) DVT prophylaxis Current Visit: Yes Comment: -Lovenox discontinued -Eliquis started by Dr. George (6) Full code status Current Visit: Yes Comment: -Pt's mother is Surrogate Status and Disposition: Stable
[2019-08-25] MEDS: Apixaban* 5 MG TAB PO SCH (20:10)
[2019-08-25] MEDS: Metoprolol Tartrate TAB* 25 MG PO SCH (22:46)
[2019-08-26 04:26] LABS: Hematocrit 40 % (35-47); Hemoglobin 13.1 g/dL (12.0-16.0); Mean Platelet Volume 9.7 fL (7.4-10.4); Platelet Count 198 10^3/uL (150-450)
[2019-08-26 04:39] LABS: EGFR African American 69.1 (>60); EGFR Non-African American 57.1 (>60)
[2019-08-26] MEDS: Levothyroxine TAB* 112 MCG TAB PO SCH (05:41)
[2019-08-26] MEDS: Aspirin 81 mg CHEW TAB* 81 MG TAB.CHEW PO SCH (09:43)
[2019-08-26] MEDS: Sotalol TAB* 80 MG PO SCH ×2 (09:43→20:53)
[2019-08-26] MEDS: Sertraline* 50 MG TAB PO SCH (09:44)
[2019-08-26] MEDS: Gabapentin CAP(*) 300 MG PO SCH ×2 (09:44→20:53)
[2019-08-26] MEDS: Apixaban* 5 MG TAB PO SCH ×2 (09:45→20:53)
[2019-08-26] MEDS: Pantoprazole TAB * 40 MG TAB PO SCH (09:45)
--- NOTE | 2019-08-26 11:09 | PN ---
Subjective Date of Service: 08/26/19 Interval History: Pt reports that she continues to feel well and is happy to receive permission to shower. Pt inquiring about sotolol, curious as to how it will be dosed upon discharge. pt reports that she does much better with once daily dosed medications. pt denies chest pain, SOB, palpitations, dizziness or discomfort of any kind. Family History: Unchanged from Admission Social History: Unchanged from Admission Past Medical History: Unchanged from Admission Objective Active Medications: Acetaminophen (Tylenol Tab*) 650 mg PO Q4H PRN PRN Reason: PAIN-MILD/TEMP >/= 100.4 Apixaban (Eliquis*) 5 mg PO BID [facility] Last Admin: 08/26/19 09:45 Dose: 5 mg Aspirin (Aspirin 81 Mg Chew Tab*) 81 mg PO DAILY [facility] Last Admin: 08/26/19 09:43 Dose: 81 mg Gabapentin (Neurontin Cap(*)) 300 mg PO BID [facility] Last Admin: 08/26/19 09:44 Dose: 300 mg Levothyroxine Sodium (Synthroid Tab*) 112 mcg PO MoTuWeThFr@0600 [facility] Last Admin: 08/26/19 05:41 Dose: 112 mcg Levothyroxine Sodium (Synthroid Tab*) 100 mcg PO SuSa@0600 [facility] Metoprolol Tartrate (Lopressor Tab*) 25 mg PO Q12HR [facility] Last Admin: 08/25/19 22:46 Dose: 25 mg Pantoprazole Sodium (Protonix Tab*) 40 mg PO DAILY [facility] Last Admin: 08/26/19 09:45 Dose: 40 mg Sertraline HCl (Zoloft*) 50 mg PO DAILY [facility] Last Admin: 08/26/19 09:44 Dose: 50 mg Sotalol HCl (Betapace Tab*) 40 mg PO BID [facility] Last Admin: 08/26/19 09:43 Dose: 40 mg Vital Signs - 8 hr 08/26/19 08/26/19 08/26/19 03:07 07:35 08:00 Temperature 97.3 F 97.5 F Pulse Rate 56 60 Respiratory 16 16 16 Rate Blood Pressure 130/76 129/83 (mmHg) O2 Sat by Pulse 98 98 Oximetry 08/26/19 09:44 Temperature Pulse Rate Respiratory 16 Rate Blood Pressure (mmHg) O2 Sat by Pulse Oximetry Oxygen Devices in Use Now: None Appearance: Obese middle aged woman sitting up in bed watching TV, does not appear to be in any discomfort. Eyes: No Scleral Icterus, PERRLA Ears/Nose/Mouth/Throat: NL Teeth, Lips, Gums, Clear Oropharnyx, Mucous Membranes Moist Neck: NL Appearance and Movements; NL JVP, Trachea Midline, No Thyroid Enlargement, Masses Respiratory: Symmetrical Chest Expansion and Respiratory Effort, Clear to Auscultation Cardiovascular: NL Sounds; No Murmurs; No JVD, RRR, No Edema Abdominal: NL Sounds; No Tenderness; No Distention Skin: No Rash or Ulcers, No Nodules or Sclerosis Neurological: Alert and Oriented x 3, NL Sensation, NL Muscle Strength and Tone Result Diagrams: 08/26/19 04:03 08/26/19 04:03 Assess/Plan/Problems-Billing Assessment: 59 year old female patient with history significant for HTN, Hypothyrodism, Asthma presents to ED via ambulance from [facility] with complaints of atrial fibrillation with rates in 150's, with multiple episodes chest pain and pressure arrives with cardizem drip. Pt presented with chest pressure Afib with RVR had recently stopped her beta suzi, 24 hours earlier in preparation for stress testing . - Patient Problems (1) Afib Current Visit: Yes Comment: -Pt denies feeling any chest pressure today denies experiencing any chest fluttering -Tolerating sotalol well. ECG today QTc 413, Sinus bradycardia @ 57 -Metoprolol and sotalol to be dosed one hour apart -Tele remains inplace -Stress test shows EF 70% without any abnormal wall movement- Low risk (2) HTN (hypertension) Current Visit: Yes Comment: -Blood pressures are well controlled -Home Lisinopril held for now. -Metolprolol dose reduced to 25mg PO Q12H by Dr. George (3) Hypothyroid Current Visit: Yes Comment: -Hypothyroid well controlled - TSH 1.49 (4) Hypokalemia Current Visit: Yes Comment: -Potassium replacement effective K+ now 4.3 (5) DVT prophylaxis Current Visit: Yes Comment: -Lovenox discontinued -Eliquis started by Dr. George (6) Full code status Current Visit: Yes Comment: -Pt's mother is Surrogate Status and Disposition: Stable
[2019-08-26] MEDS: Metoprolol Tartrate TAB* 25 MG PO SCH ×2 (11:51→22:44)
[2019-08-26] MEDS: Acetaminophen TAB* 325 MG PO PRN (22:46)
[2019-08-27] MEDS: Levothyroxine TAB* 112 MCG TAB PO SCH (06:08)
[2019-08-27] MEDS: Sotalol TAB* 80 MG PO SCH ×2 (08:37→21:01)
[2019-08-27] MEDS: Metoprolol Tartrate TAB* 25 MG PO SCH (08:37)
[2019-08-27] MEDS: Pantoprazole TAB * 40 MG TAB PO SCH (08:40)
[2019-08-27] MEDS: Apixaban* 5 MG TAB PO SCH ×2 (08:40→21:01)
[2019-08-27] MEDS: Aspirin 81 mg CHEW TAB* 81 MG TAB.CHEW PO SCH (08:40)
[2019-08-27] MEDS: Sertraline* 50 MG TAB PO SCH (08:40)
[2019-08-27] MEDS: Gabapentin CAP(*) 300 MG PO SCH ×2 (08:41→21:01)
--- NOTE | 2019-08-27 08:58 | PN ---
<Isha Leslie - Last Filed: 08/27/19 09:20> Subjective Date of Service: 08/27/19 - symptomatic PAF with RVR Interval History: No events last night, patient states she has been feeling fatigued. I suspect this is from relative bradycardia so I have stopped Lopressor and placed her back on Lisinopril at 10mg/day for HTN management. She denies sob, buck, palpitations or chest pain. She has been up and ambulating the halls with no difficulty. Medications Active Medications: Acetaminophen (Tylenol Tab*) 650 mg PO Q4H PRN PRN Reason: PAIN-MILD/TEMP >/= 100.4 Last Admin: 08/26/19 22:46 Dose: 650 mg Apixaban (Eliquis*) 5 mg PO BID [facility] Last Admin: 08/27/19 08:40 Dose: 5 mg Gabapentin (Neurontin Cap(*)) 300 mg PO BID [facility] Last Admin: 08/27/19 08:41 Dose: Not Given Levothyroxine Sodium (Synthroid Tab*) 112 mcg PO MoTuWeThFr@0600 [facility] Last Admin: 08/27/19 06:08 Dose: 112 mcg Levothyroxine Sodium (Synthroid Tab*) 100 mcg PO SuSa@0600 [facility] Metoprolol Tartrate (Lopressor Tab*) 12.5 mg PO Q12HR [facility] Pantoprazole Sodium (Protonix Tab*) 40 mg PO DAILY [facility] Last Admin: 08/27/19 08:40 Dose: 40 mg Sertraline HCl (Zoloft*) 50 mg PO DAILY [facility] Last Admin: 08/27/19 08:40 Dose: 50 mg Sotalol HCl (Betapace Tab*) 40 mg PO BID [facility] Last Admin: 08/27/19 08:37 Dose: 40 mg Objective Vital Signs: Temp Pulse Resp BP Pulse Ox 97.1 F 61 17 143/76 94 08/27/19 07:32 08/27/19 07:32 08/27/19 08:41 08/27/19 07:32 08/27/19 07:32 Oxygen Devices in Use Now: None Appearance: sitting upright in bed, obese pleasant 59 year old, NAD. A+O x3 Ears/Nose/Mouth/Throat: NL Teeth, Lips, Gums, Clear Oropharnyx, Mucous Membranes Moist Neck: NL Appearance and Movements; NL JVP, Trachea Midline Respiratory: Symmetrical Chest Expansion and Respiratory Effort, Clear to Auscultation Cardiovascular: NL Sounds; No Murmurs; No JVD, RRR, No Edema Extremities: No Edema Skin: No Rash or Ulcers Neurological: Alert and Oriented x 3 Lines/Tubes/Other Access: Clean, Dry and Intact Peripheral IV Laboratory Results: 08/26/19 04:03 08/26/19 04:03 08/24/19 08/25/19 22:12 05:58 Troponin I 0.00 0.00 Diagnostic Imaging: Patient Name: AKUA GALLO Medical Record#: [id number] Ordering Physician: Dinorah Palmer MD Acct.#: [id number] : 1960 Age: 59 Sex: F Location: [address] [place] [address]/TELEMETRY Exam Date: 08/25/19655 ADM Status: ADM Selam Order Information: NUCLEAR CARDIAC STRESS TEST Accession Number: [id number] CPT: 50036 Indication: Chest pain. Myocardial perfusion scan was performed utilizing 1 day protocol. 10.7 mCi of technetium 99m tetrofosmin was injected for the rest portion of the study. 25.08 mCi of technetium 99m tetrofosmin was injected after pharmacological stress. There is homogeneous distribution of the radiotracer throughout the left ventricle. There is some mild photopenia in the lateral wall which appears to be artifactual and is present on both the rest and stress images. The ejection fraction at stress is 72%. Evaluation of wall motion demonstrates no focal wall motion abnormality. TID equals 0.97. The ejection fraction at stress is 72%. Evaluation of wall motion demonstrates no focal wall motion abnormality. IMPRESSION: Lateral wall photopenia which is likely artifactual. No definite reversible change is noted. Normal ejection fraction with wall motion. ASSESSMENT: Low risk Based on imaging criteria from ACC/AHA 2002 Guideline Update for the Management of Patients With Chronic Stable Angina Table 23. Noninvasive Risk Stratification. Reference. <Electronically signed by Roslyn Ruelas MD in [place]> 08/25/19 1434 Dictated By: Roslyn Ruelas MD Dictated Date/Time: 08/25/19 1047 Transcribed Date/Time: 08/25/19 1047 Copy to: CC:Suhas Ramsay MD; Zehra García DO; Dinorah Palmer MD; Vasquez Anguiano MD Imaging - [facility] Imaging - [facility] Imaging - [facility] [address] [facility] This report is only to be considered final once signed by the Provider(s) as displayed in the "<Electronically Signed by >" field (s). Absence of a signature indicates the report is in a draft status and still needs to be finalized. In the event this document was created by someone other than the signing Provider, the individual initiating the document will be listed in the "Entered by:" or "Dictated by:" butcher. 1 of 2 EKG Data: telemetry reviewed 08/25-08/26; sinus rhythm rate 55-65 no VT rare PVC ECG 08/27/2019; Sinus rhythm bradycardia rate 52, QTc 407 Assessment/Plan #1 Newly diagnosed symptomatic PAF with RVR; Currently in NSR on Sotalol 40mg Po BID. She has had relative bradycardia noted on telemetry during daytime hours thus, will reduce Lopressor to 12.5mg Po BID starting tonight. Her Chads Vasc is technically 2 given h/o HTN And gender. She is on Eliquis 5mg PO BID. She is aware that therapeutic level when BMI is >40 is not known and could potentiate bleeding or subtherapeutic OAC she desires to continue Eliquis therapy. She has received her fourth dose of Sotalol this morning. QTc is stable on today's ecg. No VT/VF noted on telemetry. will add on K+ and Mag level. Goal K+ level is >4 and goal Mag level >2 to avoid QTc prolongation. She has morbid obesity and c/o snoring will check overnight oximetry while she is observed tonight. Weight loss previously discussed with patient at length. #2 h/o HTN; On sotalol and Lopressor. Lopressor to be discontinued due to relative bradycardia. Will add back Lisinopril at 10mg/day. I spoke with her at length that ACEI dose may need to be titrated depending up BP response. Goal BP < 130/80 #3 h/o Hypothyroidism; on levothyroxine. TSH .31 06/18/19. Will repeat TSH to determine if dose change improved thyroid function. #4 BMI 44; encouraged achieving a healthy BMI to help with prevention of breakthrough AF in addition to optimizing utilization of DOAC therapy. consider eventual referral to center for healthy [facility]. #5 disposition pending course, patient full code. Will likely go home tomorrow morning as long as she clinically tolerate Sotalol med load. Again first dose was 08/25/2019 in the evening hours. Will check overnight oximetry study to r/o nocturnal hypoxia. ( I am not sure that sleep studies will be conducted given restriction on elective testing with Covid 19 pandemic however, if overnight oximetry is abnormal I believe diagnostic sleep studies will still have to be done. Will stop Bblocker therapy and add back ACEI for HTN management given relative bradycardia. Case discussed with Dr. Figueroa Attending: Herson Figueroa <Herson Figueroa - Last Filed: 08/27/19 12:00> Medications Active Medications: Acetaminophen (Tylenol Tab*) 650 mg PO Q4H PRN PRN Reason: PAIN-MILD/TEMP >/= 100.4 Last Admin: 08/26/19 22:46 Dose: 650 mg Apixaban (Eliquis*) 5 mg PO BID [facility] Last Admin: 08/27/19 08:40 Dose: 5 mg Gabapentin (Neurontin Cap(*)) 300 mg PO BID [facility] Last Admin: 08/27/19 08:41 Dose: Not Given Levothyroxine Sodium (Synthroid Tab*) 112 mcg PO MoTuWeThFr@0600 [facility] Last Admin: 08/27/19 06:08 Dose: 112 mcg Levothyroxine Sodium (Synthroid Tab*) 100 mcg PO SuSa@0600 [facility] Lisinopril (Prinivil Tab*) 10 mg PO DAILY [facility] Pantoprazole Sodium (Protonix Tab*) 40 mg PO DAILY [facility] Last Admin: 08/27/19 08:40 Dose: 40 mg Sertraline HCl (Zoloft*) 50 mg PO DAILY [facility] Last Admin: 08/27/19 08:40 Dose: 50 mg Sotalol HCl (Betapace Tab*) 40 mg PO BID [facility] Last Admin: 08/27/19 08:37 Dose: 40 mg Objective Vital Signs: Temp Pulse Resp BP Pulse Ox 97.1 F 61 17 143/76 94 08/27/19 07:32 08/27/19 07:32 08/27/19 08:41 08/27/19 07:32 08/27/19 07:32 Laboratory Results: 08/26/19 04:03 08/26/19 04:03 08/24/19 08/25/19 22:12 05:58 Troponin I 0.00 0.00 Assessment/Plan 08.27.2019 11:57 am: pt seen and examined. Clinical care d/w RAMP JOCKEY Ivonne Leslie. Remains in NSR. feels well. Labs reviewed. Overnight oximetry. Agree with current clinical decision making and plan of care.
[2019-08-27] MEDS ORDERED: Lisinopril TAB* 5 MG PO SCH (09:00)
[2019-08-27 15:39] LABS: BUN/Creatinine Ratio 16.5 (8-20); Calcium 9.6 mg/dL (8.6-10.3); EGFR African American 66.8 (>60); EGFR Non-African American 55.2 (>60); Potassium 4.2 mmol/L (3.5-5.0)
[2019-08-27 16:07] LABS: TSH (Thyroid Stimulating Horm) 0.54 mcIU/mL (0.34-5.60)
[2019-08-27] MEDS: Acetaminophen TAB* 325 MG PO PRN (16:41)
--- NOTE | 2019-08-27 17:06 | PN ---
Subjective Date of Service: 08/27/19 Interval History: Sitting up in bed, NAD. Pt states that she is feeling well. Denies any SINGH, lightheadedness, CP, palpitations, SOB, N/V/D, unusual numbness/tingling. Family History: Unchanged from Admission Social History: Unchanged from Admission Past Medical History: Unchanged from Admission Objective Active Medications: Acetaminophen (Tylenol Tab*) 650 mg PO Q4H PRN PRN Reason: PAIN-MILD/TEMP >/= 100.4 Last Admin: 08/27/19 16:41 Dose: 650 mg Apixaban (Eliquis*) 5 mg PO BID [facility] Last Admin: 08/27/19 08:40 Dose: 5 mg Gabapentin (Neurontin Cap(*)) 300 mg PO BID [facility] Last Admin: 08/27/19 08:41 Dose: Not Given Levothyroxine Sodium (Synthroid Tab*) 112 mcg PO MoTuWeThFr@0600 [facility] Last Admin: 08/27/19 06:08 Dose: 112 mcg Levothyroxine Sodium (Synthroid Tab*) 100 mcg PO SuSa@0600 [facility] Lisinopril (Prinivil Tab*) 10 mg PO DAILY [facility] Pantoprazole Sodium (Protonix Tab*) 40 mg PO DAILY [facility] Last Admin: 08/27/19 08:40 Dose: 40 mg Sertraline HCl (Zoloft*) 50 mg PO DAILY [facility] Last Admin: 08/27/19 08:40 Dose: 50 mg Sotalol HCl (Betapace Tab*) 40 mg PO BID [facility] Last Admin: 08/27/19 08:37 Dose: 40 mg Vital Signs - 8 hr 08/27/19 08/27/19 11:15 15:09 Temperature 97.3 F 97.2 F Pulse Rate 62 59 Respiratory 16 18 Rate Blood Pressure 128/72 127/71 (mmHg) O2 Sat by Pulse 96 96 Oximetry Oxygen Devices in Use Now: None Appearance: sitting up in bed, NAD Eyes: No Scleral Icterus, PERRLA Ears/Nose/Mouth/Throat: Clear Oropharnyx, Mucous Membranes Moist Respiratory: Symmetrical Chest Expansion and Respiratory Effort, Clear to Auscultation Cardiovascular: RRR Abdominal: NL Sounds; No Tenderness; No Distention Extremities: No Edema Skin: - - dry, intact Neurological: Alert and Oriented x 3 Nutrition: Taking PO's Result Diagrams: 08/26/19 04:03 08/27/19 15:10 EKG Data: continues with sinus bradycardia, last QTc 402 Assess/Plan/Problems-Billing Assessment: 59 year old female patient with history significant for HTN, Hypothyrodism, Asthma presents to ED via ambulance from [facility] after c/o chest discomfort and palpitations and was noted to be in AFib with RVR after being off of BB in preparation for stress testing. - Patient Problems (1) Afib Current Visit: Yes Status: Acute Code(s): I48.91 - UNSPECIFIED ATRIAL FIBRILLATION SNOMED Code(s): 54759258 Comment: Pt denies feeling any chest discomfort or palpitations. Tolerating sotalol well. ECG today SB with QTc 402. Stress test shows EF 70% without any abnormal wall movement- Low risk. TSH 0.54. - overnight pulse ox ordered per cardiology, if abnormal should have outpatient sleep study -Metoprolol d/c per cardiology - on eliquis -Tele remains inplace (2) HTN (hypertension) Current Visit: Yes Status: Acute Code(s): I10 - ESSENTIAL (PRIMARY) HYPERTENSION SNOMED Code(s): 76715931 Comment: Blood pressures are well controlled with mild elevations at times. -Lisinopril restarted per cardiology -Metolprolol d/c per cardiology (3) Hypothyroid Current Visit: Yes Status: Acute Code(s): E03.9 - HYPOTHYROIDISM, UNSPECIFIED SNOMED Code(s): 65806819 Comment: TSH 0.54 -Continue with usual levothyroxine dosage (4) DVT prophylaxis Current Visit: Yes Status: Acute Code(s): Z29.9 - ENCOUNTER FOR PROPHYLACTIC MEASURES, UNSPECIFIED SNOMED Code(s): 863708229 Comment: -Lovenox discontinued -Eliquis started by Dr. George (5) Full code status Current Visit: Yes Status: Acute Code(s): Z78.9 - OTHER SPECIFIED HEALTH STATUS SNOMED Code(s): 732999928 Status and Disposition: Status:Stable Disposition: 4S Attending: Cara Chinchilla
[2019-08-27] MEDS ORDERED: Metoprolol Tartrate TAB* 25 MG PO SCH (20:00)
[2019-08-27] MEDS ORDERED: Magnesium Oxide TAB* 400 MG PO ONE (21:46)
[2019-08-28] MEDS ORDERED: Levothyroxine TAB* 100 MCG TAB PO SCH (06:00)
[2019-08-28] MEDS ORDERED: Lisinopril TAB* 10 MG PO SCH (09:00)
[2019-08-28] MEDS: Sotalol TAB* 80 MG PO SCH (09:09)
[2019-08-28] MEDS: Sertraline* 50 MG TAB PO SCH (09:09)
[2019-08-28] MEDS: Gabapentin CAP(*) 300 MG PO SCH (09:09)
[2019-08-28] MEDS: Apixaban* 5 MG TAB PO SCH (09:10)
[2019-08-28] MEDS: Pantoprazole TAB * 40 MG TAB PO SCH (09:10)
[2019-08-28 11:32] VITALS: BP 143/89
--- NOTE | 2019-08-28 21:18 | DS ---
CC: Dr. Ramsay * DISCHARGE SUMMARY: DATE OF ADMISSION: 08/24/19 DATE OF DISCHARGE: 08/28/19 ATTENDING PHYSICIAN: Dr. Chinchilla. PRIMARY CARE PHYSICIAN: Dr. Ramsay. CONSULTING PROVIDERS: Dr. George with Cardiology. ATTENDING PROVIDER: Dr. Chinchilla * (DICTATED BY YANCY ESPARZA NP) PRIMARY DIAGNOSIS: Atrial fibrillation with rapid ventricular response. SECONDARY DIAGNOSES: 1. Hypertension. 2. Hypothyroidism. 3. Anxiety. 4. Depression. HISTORY OF PRESENT ILLNESS AND HOSPITAL COURSE: Ms. Andrade is a 59-year-old female with past medical history significant for left knee arthroscopy in April 2019, hypertension, anxiety, depression, hypothyroidism, asthma which is well controlled. She reports that on 08/24/19 while she was working around 4 p.m., she started experiencing some palpitations and chest discomfort which was radiating from bilateral shoulders to her neck region. She felt like her palpitations were fast and irregular. She ended up going to [facility] where she was noted to be in AFib with RVR with the rate in the 150s. She was placed on a Cardizem drip. She had another episode of chest pain radiating to bilateral shoulders, upper chest, and to the neck which lasted for approximately 1 minute. She was transferred to [facility] and admitted to the telemetry floor. It is noted that after her surgery in April 2019, she started noticing episodes of palpitations and having chest discomfort. They would come and go. She did see Dr. Anguiano as well as her PCP. She was placed on a beta-suzi and titrated up to Toprol-XL 50 mg at night. She reports doing well after being placed on this medication. She did have an echocardiogram performed, which showed an EF of 55% to 60% with no marked valvular abnormalities, no diastolic dysfunction. She was recommended to have stress testing, and for that, she was recommended to stop her beta-suzi. The last time she took her beta-suzi prior to having this episode on Friday evening was the night of 08/23/19. While in the hospital, she did receive cardiology consultation, for which ultimately she was put on sotalol 40 mg b.i.d. Metoprolol had been discontinued. She had decent response to the sotalol. Last QTc per EKG was 406. She also was ordered overnight pulse oximetry while she was here which shows a highest SpO2 of 97%, lowest SpO2 of 82 % with the longest continuous time with saturation below 88% was 1 minute and 36 seconds and there were 5 desaturation events over 3 minutes duration with 42 desaturation events of less than 3 minutes duration. With positive response to sotalol loading, she is medically stable for discharge this afternoon. She will continue with Eliquis. We will also be starting lisinopril at 10 mg, which she did have a dose of today already. Spoke to the patient about getting referral for a sleep study. Her most recent TSH was 0.54. She was noted to have mild elevations in creatinine during this admission ranging from 0.96 to 1.03. However, this does appear to be near baseline for her. Today, the patient states that she feels very well. Denies any headache, lightheadedness, dizziness, fevers, chills, chest pain, shortness of breath, abdominal discomfort , unusual swelling, unusual numbness or tingling. STUDIES: Initial EKG on arrival to the [facility] did show AFib with a rate of 94, no significant elevations or depressions. Most recent EKG shows sinus bradycardia with QTc 406, no ST elevations or depressions, ID interval of 0.2 seconds. Nuclear medicine scan, impression states lateral wall photopenia which is likely artifactual. No definite reversible changes noted. Normal ejection fraction with wall motion. Assessment: Low risk. PERTINENT LABORATORY DATA: Hemoglobin 13.1, hematocrit 40, platelet count 198, MPV 9.7. Sodium 138, potassium 4.2, chloride 105, carbon dioxide 26, anion gap 7, BUN 17, creatinine 1.03, estimated GFR 55.2, BUN/creatine ratio 16.5, glucose 91, calcium 9.6, magnesium 2.1. TSH 0.54. Troponins after arrival 0.00 x2. REVIEW OF SYSTEMS: A 12-point review of systems was completed with this patient. Please see HPI for all pertinent positives and negatives. PHYSICAL EXAMINATION: Constitutional: The patient is sitting up in chair, in no acute distress. Last Vital Signs: Temp 97.5, heart rate 57, respiratory rate 16, O2 sat 95% on room air, BP 143/89. HEENT: PERRL. No scleral icterus noted. Mucous membranes moist. Cardiovascular: Heart rate regular, S1 and S2 present. No murmurs, rubs, or gallops noted. Extremities: No edema. Respiratory: Lung sounds clear throughout bilaterally. Normal respiratory effort. GI: Normoactive bowel sounds throughout. Abdomen: Soft and nontender. Musculoskeletal: Strength and range of motion within normal limits to all extremities. Skin: Appears dry and intact. Neuro: Alert and oriented x3. DISCHARGE PLAN: DIET: Continue with heart healthy diet. Information given about DASH diet plan. Also aware of foods containing magnesium. EQUIPMENTS: No equipment necessary for discharge. ACTIVITY: Resume usual activity level, increase as tolerated. DIAGNOSES: 1. Atrial fibrillation with rapid ventricular response. The patient originally treated with Cardizem drip, transitioned to sotalol. Not on metoprolol any longer. Per cardiology notes, it was spoken about with the patient lifestyle improvements as well as significance of sleep study to rule out or in sleep apnea which could also be a trigger. Most recent TSH 0.54. This episode likely happened in relation to discontinuing her beta-suzi prior to schedule stress testing. She, however, has responded well to the sotalol and will be following up with her PCP and Cardiology. The patient will remain on Eliquis at this time. 2. Hypertension. Her blood pressures have been relatively stable over the last few days. However, she has been on multiple medications while in the hospital. We will continue with lisinopril at 10 mg daily. She will be measuring her blood pressure at home via automatic cuff and recording her values to take to her PCP. She is aware to call PCP with any significantly unusual values. 3. Hypothyroidism. It appears controlled at this time with levothyroxine. However, the patient stated that she takes this at night with usual medications , not without regard for recent food intake and she has been receiving this in the morning while here for the last few days. This size changer a few days will not likely have a significant result on her thyroid hormone status, however, she should be following up with her PCP. 4. Anxiety and depression. The patient will continue her usual Zoloft regimen. RETURN PRECAUTIONS: Return to ER or call 911 with significant lightheadedness, dizziness, chest pain or discomfort, shortness of breath. All other nonemergent concerns can be deferred to PCP. MEDICATIONS AT DISCHARGE: 1. Gabapentin 300 mg p.o. b.i.d. 2. Omeprazole 20 mg p.o. daily. 3. Levothyroxine 100 mcg p.o. Friday and Friday. 4. Levothyroxine 112 mcg p.o. Friday, Friday, Friday, , and Friday. 5. Ketoconazole 2% cream 1 application topically b.i.d. p.r.n. 6. Sertraline 50 mg p.o. daily. 7. Sotalol 40 mg p.o. b.i.d. 8. Lisinopril 10 mg p.o. daily. 9. Apixaban 5 mg p.o. b.i.d. 10. Acetaminophen 650 mg p.o. q.4 hours p.r.n. CONDITION ON DISCHARGE: Stable. DISPOSITION: Home. TIME SPENT: Approximately 60 minutes was spent on this admission with about 25 of that being [id number] with the patient for interview, exam and reviewing plan of care and discharge plan. The plan has been discussed with my attending physician, Dr. Chinchilla, and she agrees with this plan. YANCY ESPARZA NP [id number]/[facility] #: [id number] TIAN
== END 2019-08-28 13:30 | disposition home or self-care (01) | DRG 201 ==
LOC: ED 21:35 → MEDTELE 22:47 → OBSVTOIN 08-25 12:00
PROVIDERS: ADMIT Internal Medicine; ATTEND Hospitalist
DX: I48.0 Paroxysmal atrial fibrillation (principal); Z68.41 Body mass index [BMI] 40.0-44.9, adult; I10 Essential (primary) hypertension; E03.9 Hypothyroidism, unspecified; F41.9 Anxiety disorder, unspecified; E66.01 Morbid (severe) obesity due to excess calories; G62.9 Polyneuropathy, unspecified; F32.9 Major depressive disorder, single episode, unspecified; E87.6 Hypokalemia; J45.909 Unspecified asthma, uncomplicated; Z79.899 Other long term (current) drug therapy; Z88.1 Allergy status to other antibiotic agents; Z88.0 Allergy status to penicillin; Z88.8 Allergy status to other drugs, medicaments and biological substances; Z82.49 Family history of ischemic heart disease and other diseases of the circulatory system; Z82.3 Family history of stroke; Z83.3 Family history of diabetes mellitus
CPT/HCPCS: 36415; 78452; 80048; 82565; 83735; 84443; 84484; 84520; 85014; 85018; 85049; 93005; 93017; 94762; 96374; 99284; A9270-GY; A9502; J1650; J2785; J3490